=== PATIENT | male | born 1950 | race Caucasian/White ===

== ENCOUNTER → 2018-12-11 | Outpatient (REF) | payer MEDICARE ==
[2018-12-11 13:32] LABS: APPEARANCE, URINE CLEAR (CLEAR); BACTERIA, URINE AUTO NEGATIVE (NEGATIVE); BILIRUBIN, URINE AUTO NEGATIVE (NEGATIVE); BLOOD, URINE BLOOD NEGATIVE (NEGATIVE); COLOR, URINE YELLOW (YELLOW); GLUCOSE, URINE (UA) AUTO NEGATIVE (NEGATIVE); KETONE, URINE AUTO NEGATIVE (NEGATIVE); LEUKOCYTE ESTERASE, URINE AUTO NEGATIVE (NEGATIVE); MUCUS, URINE SMALL (NEGATIVE); NITRITE, URINE AUTO NEGATIVE (NEGATIVE); PROTEIN, URINE AUTO NEGATIVE (NEGATIVE); RBC, URINE AUTO 1 /HPF (0-3); SPECIFIC GRAVITY URINE AUTO 1.019 (1.002-1.035); SQUAMOUS EPITHELIAL CELL UR AU 0 /HPF (0-6); UROBILINOGEN, URINE AUTO 0.2 mg/dL (0.0-2.0); WBC, URINE AUTO 1 /HPF (0-3)
== END ==
LOC: M SMT 12:50
PROVIDERS: ATTEND Nurse Practitioner Women's Health
DX: N32.89 Other specified disorders of bladder (principal)
CPT/HCPCS: 81001; 87086; 88108; G0463

== ENCOUNTER → 2020-12-30 | Outpatient (REF) | payer MEDICARE ==
[2020-12-30 19:34] LABS: BACTERIA, URINE AUTO NEGATIVE (NEGATIVE); MUCUS, URINE SMALL (NEGATIVE); RBC, URINE AUTO 1 /HPF (0-3); SQUAMOUS EPITHELIAL CELL UR AU 0 /HPF (0-6); WBC, URINE AUTO 4 /HPF (0-3)
== END ==
LOC: M SMT 17:36
PROVIDERS: ATTEND Specialist
DX: N13.5 Crossing vessel and stricture of ureter without hydronephrosis (principal)
CPT/HCPCS: 81015; 87086; G0463

== ENCOUNTER → 2021-02-01 | Outpatient (CLI) | payer MEDICARE ==
[~2021-02-01] MED LIST: ISOVUE-300 61% 50ML VIAL As Ordered ONE
--- NOTE | 2021-02-01 15:47 | REP ---
INDICATION: URETEROVESICAL JUNCTION OBSTRUCTION. COMPARISON: COMPARISON IS MADE WITH CT IMAGES FROM [facility] DATED OCTOBER 31, 2018. TECHNIQUE: Preliminary assistant production editor view of the abdomen is acquired. 100 mL of Isovue-300 is administered intravenously. Sequential radiographs are obtained along with nephro tomography. FINDINGS: The preliminary assistant production editor radiograph demonstrates a densely calcified gallstone in the right upper quadrant. This measures 2 cm in greatest diameter. There is a left lower quadrant enterostomy. There are surgical clips in the pelvis. The patient is noted to be status post abdominal peroneal resection. Sequential films taken after the intravenous injection of contrast demonstrate prompt symmetric function. Nephro tomography demonstrates a well-circumscribed low-density in the upper pole left kidney consistent with a cyst. This measures 3.9 cm in greatest diameter. This is visible on the prior CT study from 2019. No filling defect is seen in the upper tracts. There is no evidence of hydronephrosis. Ureters describe a normal course to the bladder. Bladder allison are trabeculated and there is extrinsic indentation of the bladder dome from an adjacent air-filled loop of bowel. No definite filling defect is seen in the urinary bladder. IMPRESSION: There is a cyst in the upper pole left kidney. There is no visible hydronephrosis. Bladder wall is trabeculated. The patient is post abdominal peroneal resection with left lower quadrant colostomy. There is a 2 cm gallstone in the right upper quadrant. <Electronically signed by Dl Cnoner > 02/01/21 1263
== END ==
LOC: M RAD 10:56
PROVIDERS: ATTEND Specialist
DX: N13.5 Crossing vessel and stricture of ureter without hydronephrosis (principal)
CPT/HCPCS: 74410; Q9967